=== PATIENT | female | born 1960 | race Caucasian/White ===

== ENCOUNTER 2017-10-01 05:44 | Day surgery (SDC) | payer OTHER ==
[2017-09-30 16:54] VITALS: BMI 42.3
[2017-10-01] MEDS ORDERED: Diazepam 5 MG TAB ONE (06:16)
[2017-10-01] MEDS ORDERED: Lidocaine 1% (PF) 30 ML VIAL ONE (06:33)
[2017-10-01 06:55] LABS: #Basophils 0.1 thou/uL (0.0-0.2); #Eosinphils 0.1 thou/uL (0.0-0.7); #Lymphocytes 2.1 thou/uL (1.20-3.40); #Monocytes 0.8 thou/uL (0.11-0.59); #Neutrophils 4.6 thou/uL (1.40-6.50); %Eosinophils 1.5 % (0.0-10.0); %Lymphocytes 27.2 % (21.0-51.0); %Monocytes 10.7 % (0.0-10.0); %Neutrophils 59.6 % (42.0-75.0); Hemoglobin 13.1 g/dL (12.0-16.0); Mean Corpuscular HGB CONC 32.4 g/dL (32.0-36.0); Mean Corpuscular Hemoglobin 30.5 pg (27.0-31.0); Mean Corpuscular Volume 94.3 fl (81.0-99.0); Platelet Count 165 thou/uL (130-400); RBC Distribution Width 12.7 % (11.5-14.5); Red Blood Cell (RBC) Count 4.31 mill/uL (4.20-5.40); White Blood Cell (WBC) Count 7.8 thou/uL (4.8-10.8)
[2017-10-01 07:04] LABS: PTT 27.4 SEC (22.9-36.1); Prothrombin Time 12.7 SEC (12.0-14.7)
[2017-10-01 07:13] LABS: Anion Gap 10 mmol/L (10-20); BUN (Urea Nitrogen) 17 mg/dL (9.8-20.1); Calc. Creatinine Clearance 152 mL/min (70-130); Calcium 9.4 mg/dL (7.8-10.44); Carbon Dioxide 28 mmol/L (22-29); Cardiac Risk 3.6 (Less than 4.5); Chloride 106 mmol/L (98-107); Cholesterol 185 mg/dl (< 200 Desired); Estimated GFR-MDRD 77; Glucose 103 mg/dL (70-105); HDL Cholesterol 52 mg/dL (>60 Neg Risk); LDL Cholesterol, Calculated 98 mg/dL; Sodium 140 mmol/L (136-145); Triglycerides 174 mg/dL (Less than 150)
[2017-10-01] MEDS ORDERED: Nitroglycerin 100MG/250ML BOT 250 ML ONE (07:26)
[2017-10-01] MEDS ORDERED: Heparin 10,000 UNITS/1 ML VIAL ONE (07:27)
[2017-10-01] MEDS ORDERED: Verapamil 5 MG/2 ML VIAL ONE (07:27)
[2017-10-01] MEDS ORDERED: Iopamidol 370 76% 100 ML VIAL ONE (12:21)
--- NOTE | 2017-10-14 22:45 | EKG ---
Test Reason : PREOP Blood Pressure : / mmHG Vent. Rate : 068 BPM Atrial Rate : 068 BPM P-R Int : 158 ms QRS Dur : 086 ms QT Int : 396 ms P-R-T Axes : 044 011 027 degrees QTc Int : 421 ms Normal sinus rhythm Normal ECG When compared with ECG of 28-SEP-2014 10:47, No significant change was found Confirmed by Katina SALES ([id number]) on 10/14/2017 10:44:34 PM Referred By: NELLA Confirmed By:Katina SALES
== END 2017-10-01 10:35 | disposition home or self-care (01) ==
LOC: CCL 05:44
PROVIDERS: ATTEND Internal Medicine Cardiovascular Disease
PROC: 4A023N7 Measurement of Cardiac Sampling and Pressure, Left Heart, Percutaneous Approach (ICD-10-PCS; principal; 2017-10-01)
PROC: B2111ZZ Fluoroscopy of Multiple Coronary Arteries using Low Osmolar Contrast (ICD-10-PCS; principal; 2017-10-01)
DX: I25.10 Atherosclerotic heart disease of native coronary artery without angina pectoris (principal); E78.5 Hyperlipidemia, unspecified; E11.9 Type 2 diabetes mellitus without complications; I10 Essential (primary) hypertension; G47.30 Sleep apnea, unspecified; E66.9 Obesity, unspecified; Z68.42 Body mass index [BMI] 45.0-49.9, adult; Z79.52 Long term (current) use of systemic steroids; Z79.82 Long term (current) use of aspirin; Z79.84 Long term (current) use of oral hypoglycemic drugs; Z79.899 Other long term (current) drug therapy; Z88.2 Allergy status to sulfonamides; Z88.8 Allergy status to other drugs, medicaments and biological substances; Z91.048 Other nonmedicinal substance allergy status
CPT/HCPCS: 80048; 80061; 85025; 85610; 85730; 93005; 93010; 93458; C1769; J1644; J2001

== ENCOUNTER 2020-02-24 19:30 | Outpatient (CLI) | payer OTHER | END 2020-02-24 19:31 | disposition home or self-care (01) | LOC: SLEEPLAB 19:30 | PROVIDERS: ATTEND Specialist | DX: G47.33 Obstructive sleep apnea (adult) (pediatric) (principal); G47.9 Sleep disorder, unspecified; R06.89 Other abnormalities of breathing; I10 Essential (primary) hypertension; R09.89 Other specified symptoms and signs involving the circulatory and respiratory systems; G31.84 Mild cognitive impairment of uncertain or unknown etiology; R06.83 Snoring; G47.00 Insomnia, unspecified; G47.10 Hypersomnia, unspecified; E66.9 Obesity, unspecified; Z68.42 Body mass index [BMI] 45.0-49.9, adult | CPT/HCPCS: 95810 ==

== ENCOUNTER 2020-03-30 19:00 | Outpatient (CLI) | payer OTHER | END 2020-03-30 19:01 | disposition home or self-care (01) | LOC: SLEEPLAB 19:00 | PROVIDERS: ATTEND Specialist | DX: G47.33 Obstructive sleep apnea (adult) (pediatric) (principal); G47.9 Sleep disorder, unspecified; R06.89 Other abnormalities of breathing; R09.89 Other specified symptoms and signs involving the circulatory and respiratory systems; G31.84 Mild cognitive impairment of uncertain or unknown etiology; G47.10 Hypersomnia, unspecified; I10 Essential (primary) hypertension; E66.9 Obesity, unspecified; Z68.42 Body mass index [BMI] 45.0-49.9, adult | CPT/HCPCS: 95811 ==

== ENCOUNTER 2023-12-16 05:44 | Observation (INO) | payer OTHER ==
[2023-12-15 09:19] VITALS: BMI 43.8
[2023-12-15 13:21] LABS: #Basophils 0.05 10x3/uL (0.0-0.2); %Basophils 0.7 % (0.0-1.0); %Eosinophils 1.9 % (0.0-10.0); %Lymphocytes 30.1 % (21.0-51.0); %Monocytes 12.8 % (0.0-10.0); %Neutrophils 54.4 % (42.0-75.0); Hematocrit 46.7 % (36.0-47.0); Hemoglobin 14.6 g/dL (12.0-16.0); Mean Corpuscular HGB CONC 31.3 g/dL (32.0-36.0); Mean Corpuscular Hemoglobin 29.3 pg (27.0-31.0); Mean Corpuscular Volume 93.8 fL (78.0-98.0); Mean Platelet Volume 9.5 fL (7.4-10.4); Platelet Count 209 10x3/uL (130-400); Red Blood Cell (RBC) Count 4.98 mill/uL (4.20-5.40)
[2023-12-15 13:58] LABS: Anion Gap 11 mmol/L (10-20); BUN (Urea Nitrogen) 14 mg/dL (9.8-20.1); Calc. Creatinine Clearance 141 mL/min (70-130); Calcium 9.1 mg/dL (7.8-10.44); Carbon Dioxide 23 mmol/L (23-31); Chloride 109 mmol/L (98-107); Estimated GFR 82; Glucose 133 mg/dL (80-115); Potassium 4.5 mmol/L (3.5-5.1); Sodium 138 mmol/L (136-145)
[2023-12-16] MEDS ORDERED: Adenosine 6 mg (2 mL) VIAL ONE (06:29)
[2023-12-16] MEDS ORDERED: Verapamil 5 MG/2 ML VIAL ONE (06:29)
[2023-12-16] MEDS ORDERED: Heparin 10,000 UNITS/ 10 ML VIAL ONE (06:30)
[2023-12-16] MEDS ORDERED: Nitroglycerin 50 MG/250 ML BOT 250 ML ONE (06:30)
[2023-12-16] MEDS ORDERED: fentaNYL 50 mcg/mL 1 mL Vial ONE (06:59)
[2023-12-16] MEDS ORDERED: Midazolam HCl 2 mg/2 ml Vial ONE (06:59)
[2023-12-16] MEDS ORDERED: Clopidogrel Bisulfate 300 MG TAB ONE (08:08)
[2023-12-16] MEDS ORDERED: Ondansetron PF 4 MG/2 ML Vial ONE (08:16)
[2023-12-16] MEDS ORDERED: Atropine Sulfate 1 mg/10 ml Syringe ONE (08:17)
[2023-12-16] MEDS ORDERED: HYDROcodone/Acetaminophen 5/325 mg Tablet ONE ×3 (09:32→18:02)
[2023-12-16] MEDS ORDERED: TICAGRELOR 90 MG TABLET PO SCH (10:00)
[2023-12-16] MEDS ORDERED: Iopamidol 370 76% 100 ML VIAL ONE (10:17)
[2023-12-16] MEDS: HYDROcodone/Acetaminophen 5/325 mg Tablet PO SCH (13:09)
[2023-12-17 05:00] LABS: #Basophils Less than 0.03 10x3/uL (0.0-0.2); %Basophils 0.3 % (0.0-1.0); %Eosinophils 1.6 % (0.0-10.0); %Lymphocytes 22.6 % (21.0-51.0); %Neutrophils 62.1 % (42.0-75.0); Hematocrit 39.4 % (36.0-47.0); Hemoglobin 12.6 g/dL (12.0-16.0); Mean Corpuscular Hemoglobin 29.4 pg (27.0-31.0); Mean Corpuscular Volume 91.8 fL (78.0-98.0); Mean Platelet Volume 9.4 fL (7.4-10.4); Platelet Count 166 10x3/uL (130-400); Red Blood Cell (RBC) Count 4.29 mill/uL (4.20-5.40)
[2023-12-17 05:28] LABS: ALT (SGPT) 5 U/L (8-55); AST (SGOT) 11 U/L (5-34); Albumin 2.3 g/dL (3.4-4.8); Alkaline Phosphatase 138 U/L (40-110); Anion Gap 14 mmol/L (10-20); BUN (Urea Nitrogen) 10 mg/dL (9.8-20.1); Bilirubin, Total 0.3 mg/dL (0.2-1.2); Calc. Creatinine Clearance 163 mL/min (70-130); Calcium 8.5 mg/dL (7.8-10.44); Carbon Dioxide 20 mmol/L (23-31); Chloride 112 mmol/L (98-107); Estimated GFR 96; Globulin 3.4 g/dL (2.4-3.5); Glucose 101 mg/dL (80-115); Potassium 3.9 mmol/L (3.5-5.1); Protein, Total 5.7 g/dL (5.8-8.1); Sodium 142 mmol/L (136-145)
[2023-12-17] MEDS ORDERED: Aspirin 81 mg Enteric Coated Tablet PO SCH (14:00)
[2023-12-17] MEDS ORDERED: TICAGRELOR 90 MG TABLET PO SCH ×2 (14:00→21:00)
[2023-12-17] MEDS ORDERED: Baclofen 10 MG TAB PO PRN (15:08)
[2023-12-17] MEDS: TICAGRELOR 90 MG TABLET PO SCH (15:17)
[2023-12-17] MEDS: Aspirin 81 mg Enteric Coated Tablet PO SCH (15:18)
[2023-12-17 15:57] VITALS: BP 141/95; TEMP 98.2
[2023-12-17] MEDS ORDERED: carBAMazepine 100 mg Chewable Tablet PO SCH (17:00)
[2023-12-17] MEDS ORDERED: Gabapentin 300 MG CAP PO SCH (21:00)
[2023-12-18] MEDS ORDERED: Ezetimibe 10 MG TAB PO SCH (09:00)
[2023-12-18] MEDS ORDERED: Clopidogrel Bisulfate 75 MG TAB PO SCH (09:00)
[2023-12-18] MEDS ORDERED: Sertraline 100 MG TAB PO SCH (09:00)
[2023-12-18] MEDS ORDERED: Liothyronine Sodium 25 MCG TAB PO SCH (09:00)
[2023-12-18] MEDS ORDERED: Amitriptyline HCl 25 MG TAB PO SCH (09:00)
[2023-12-18] MEDS ORDERED: Isosorbide Mononitrate 30 MG ER.TAB PO SCH (09:00)
[2023-12-18] MEDS ORDERED: Aspirin 81 mg Enteric Coated Tablet PO SCH (09:00)
== END 2023-12-17 17:12 | disposition home or self-care (01) ==
LOC: SDC 05:44 → 2NO 15:04
PROVIDERS: ADMIT Internal Medicine Cardiovascular Disease; ATTEND Internal Medicine Cardiovascular Disease
PROC: 4A023N7 Measurement of Cardiac Sampling and Pressure, Left Heart, Percutaneous Approach (ICD-10-PCS; principal; 2023-12-16)
DX: I25.10 Atherosclerotic heart disease of native coronary artery without angina pectoris (principal); I83.019 Varicose veins of right lower extremity with ulcer of unspecified site; I10 Essential (primary) hypertension; G47.33 Obstructive sleep apnea (adult) (pediatric); E11.40 Type 2 diabetes mellitus with diabetic neuropathy, unspecified; E66.01 Morbid (severe) obesity due to excess calories; Z68.41 Body mass index [BMI] 40.0-44.9, adult; Z88.1 Allergy status to other antibiotic agents; Z88.2 Allergy status to sulfonamides; Z88.8 Allergy status to other drugs, medicaments and biological substances; Z91.048 Other nonmedicinal substance allergy status; Z90.49 Acquired absence of other specified parts of digestive tract; Z79.899 Other long term (current) drug therapy
CPT/HCPCS: 36140; 36415; 36416; 80048; 80053; 85025; 85347; 92928; 92978; 93005; 93010; 93458; 93926; 97139; 99152; 99153; C1753; C1760; C1769; C1874; C1887; C1894; C9600; J0153; J0461; J1644; J2250; J2405; J3010; Q9967